=== PATIENT | female | born 1960 | race Caucasian/White ===

== ENCOUNTER 2022-01-16 11:18 | Observation (INO) ==
[2022-01-16 11:49] LABS: Basophils % 0.3 % (0.0-0.8); Eosinophils # 0.8 10*3/uL (0.0-0.87); Eosinophils % 8.6 % (0.00-10.9); Hematocrit 46.3 VOL% (35.7-47.0); Hemoglobin 15.4 GM/DL (12.0-16.0); Immature Granulocytes % 0.3 %; Immature Granulocytes Absolute 0.03 #; Lymphocytes % 11.2 % (21.3-54.2); Mean Corpuscular HGB Conc 33.3 GM/DL (32-36); Monocytes # 0.6 10*3/uL (0.11-0.8); Monocytes % 6.4 % (1.7-12.7); Neutrophils % 73.2 % (38.7-73.9); Platelet Count 198 T/CUMM (130-400); Red Blood Count 5.09 MC/CUMM (3.8-5.5); White Blood Count 9.3 T/CUMM (4-12)
[2022-01-16 11:57] LABS: INR 0.9; PT Patient Result 9.8 SECS (10.5-12.0); Partial Thromboplastin Time 24.7 SECS (23.7-32.9)
[2022-01-16] MEDS ORDERED: NITROGLYCERIN SL 0.4 MG TABLET SL STA (12:00)
[2022-01-16] MEDS ORDERED: ASPIRIN CHEW 81 MG TABLET PO STA (12:00)
[2022-01-16 12:06] LABS: Alanine Aminotransferase 28 U/L (13-56); Albumin 3.8 G/DL (3.4-5.0); Alkaline Phosphatase 151 U/L (45-117); Aspartate Amino Transferase 20 U/L (0-37); Bilirubin,Total < 0.39 MG/DL (0.20-1.00); Blood Urea Nitrogen 11 MG/DL (7-18); Calcium 8.8 MG/DL (8.5-10.1); Carbon Dioxide 26 MMOL/L (21-32); Chloride 104 MMOL/L (98-107); Glucose 91 MG/DL (74-106); Osmolality,Calculated 268.1 MOS/KG (273-304); Sodium 135 MMOL/L (136-145); Total Protein 7.2 G/DL (6.4-8.2)
[2022-01-16 12:32] LABS: Thyroid Stimulating Hormone 1.16 uIU/ml (0.358-3.74)
[2022-01-16] MEDS ORDERED: ONDANSETRON 4 MG/2 ML VIAL IV PRN (13:55)
[2022-01-16] MEDS ORDERED: ALBUTEROL/IPRATROPIUM 3 ML NEB RESP TX PRN (13:55)
[2022-01-16] MEDS ORDERED: ENOXAPARIN 40 MG/0.4 ML SYRINGE SUBCUT SCH (14:00)
[2022-01-16] MEDS ORDERED: NITROGLYCERIN SL 0.4 MG TABLET SL PRN (14:22)
[2022-01-16 14:43] LABS: Risk Ratio 2.41; VLDL Cholesterol 50.6 MG/DL
[2022-01-16] MEDS: amLODIPine 5 MG TABLET PO SCH (15:54)
[2022-01-16] MEDS ORDERED: ATORVASTATIN 40 MG TABLET PO SCH (21:00)
[2022-01-17 03:57] LABS: Basophils % 0.3 % (0.0-0.8); Eosinophils # 0.6 10*3/uL (0.0-0.87); Eosinophils % 9.3 % (0.00-10.9); Hemoglobin 13.8 GM/DL (12.0-16.0); Immature Granulocytes % 0.3 %; Immature Granulocytes Absolute 0.02 #; Lymphocytes # 1.3 10*3/uL (1.4-4.0); Lymphocytes % 19.5 % (21.3-54.2); Mean Corpuscular HGB Conc 33.7 GM/DL (32-36); Mean Corpuscular Volume 89.3 FL (87-102); Mean Platelet Volume 9.9 FL (9.6-12.0); Monocytes # 0.5 10*3/uL (0.11-0.8); Monocytes % 7.9 % (1.7-12.7); Neutrophils % 62.7 % (38.7-73.9); Platelet Count 163 T/CUMM (130-400); Red Blood Count 4.59 MC/CUMM (3.8-5.5); White Blood Count 6.6 T/CUMM (4-12)
[2022-01-17 04:12] LABS: Calcium 8.5 MG/DL (8.5-10.1); Osmolality,Calculated 267.1 MOS/KG (273-304); Potassium 3.7 MMOL/L (3.5-5.1)
[2022-01-17] MEDS ORDERED: ASPIRIN EC 325 MG TABLET PO SCH (09:00)
[2022-01-17] MEDS ORDERED: PANTOPRAZOLE 40 MG TABLET PO SCH (09:00)
[2022-01-17] MEDS ORDERED: NIACIN 500 MG TABLET PO SCH (09:00)
[2022-01-17] MEDS: amLODIPine 5 MG TABLET PO SCH (09:05)
[2022-01-17 10:19] VITALS: BP 103/78
== END 2022-01-17 12:48 | disposition home or self-care (01) ==
LOC: N.EDINP 11:18 → N.ED 11:18 → SUATTDRO 13:55 → N.TELEN 14:57
PROVIDERS: ADMIT Internal Medicine; ATTEND Internal Medicine